=== PATIENT | female | born 2000 | race Native Hawaiian/Other Pacific Islander ===

== ENCOUNTER 2022-08-29 07:46 | Emergency (ER) | payer OTHER ==
[~2022-08-29] VITALS: Ht 152.4 cm; Wt 88.5 kg
[2022-08-29 07:53] VITALS: TEMP 98
[2022-08-29 08:32] LABS: PLATELET COUNT 452 K/uL (152-353)
[2022-08-29 09:05] VITALS: BP 133/74
== END 2022-08-29 09:07 | disposition home or self-care (01) ==
LOC: ED 07:46
PROVIDERS: Emergency Medicine Emergency Medical Services
DX: N39.0 Urinary tract infection, site not specified (principal); R10.84 Generalized abdominal pain
CPT/HCPCS: 36415; 81000; 81025; 85027; 85610; 87077; 87086; 87088; 87186; 99283